=== PATIENT | male | born 1970 | race Hispanic/Latino ===

== ENCOUNTER 2021-12-22 08:52 | Emergency (ER) | payer OTHER, SELFPAY ==
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
[2021-12-22 09:15] VITALS: BP 208/90; PULSE 80; RESP 16; TEMP 36.7; O2SAT 100
[2021-12-22] MEDS: SILVER SULFADIAZINE 1% CR 50 GM JAR (*BKC) 1 APPLIC TOPICAL (09:34)
[2021-12-22 09:42] VITALS: BP 203/96
== END 2021-12-22 09:42 | disposition home or self-care (01) ==
PROVIDERS: Emergency Provider Nurse Practitioner
DX: T22.211A Burn of second degree of right forearm, initial encounter (principal); X00.0XXA Exposure to flames in uncontrolled fire in building or structure, initial encounter; Z48.00 Encounter for change or removal of nonsurgical wound dressing; I10 Essential (primary) hypertension
CPT/HCPCS: 99203; A9270; G0463

== ENCOUNTER 2022-05-14 08:57 | Emergency (ER) | payer SELFPAY ==
[2022-05-14 09:12] VITALS: BP 182/97; PULSE 92; RESP 16; TEMP 37; O2SAT 99
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
== END 2022-05-14 10:22 | disposition home or self-care (01) ==
PROVIDERS: Emergency Provider Registered Nurse
DX: M10.9 Gout, unspecified (principal); E11.9 Type 2 diabetes mellitus without complications; I10 Essential (primary) hypertension
CPT/HCPCS: 99213; G0463

== ENCOUNTER 2023-06-08 09:09 | Emergency (ER) | payer SELFPAY ==
[2023-06-08 09:40] VITALS: BP 213/109; PULSE 88; RESP 16; TEMP 37.1; O2SAT 100
--- NOTE | 2023-06-08 09:46 | ED.GENADULT ---
HPI - General Adult General Chief complaint: Extremity Problem,Nontraumatic Stated complaint: left knee swollen Source: patient, RN notes reviewed and old records reviewed Mode of arrival: ambulatory Limitations: no limitations History of Present Illness HPI narrative: 53-year-old male patient presents to [facility] with complaint of left knee pain for 2 days. Patient denies injury. Patient states has had before and states it is inflammation in the joint. Patient taking ibuprofen with some relief. 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 Related Data Allergies Allergy/AdvReac Type Severity Reaction Status Date / Time No Known Allergies Allergy Verified 06/08/23 09:45 Review of Systems Constitutional: Constitutional: Reports no additional constitutional complaints, Denies body ache(s), Denies chills, Denies fatigue, Denies fever(s) and Denies headache(s) Eyes: Eyes: Reports no additional eye complaints and Denies blurry vision ENT: Reports system reviewed and no additional complaints, except as documented, Denies vertigo, Denies dizziness, Denies ear discharge, Denies otalgia, Denies facial pain, Denies headache(s), Denies nasal congestion, Denies nasal discharge, Denies sinus pain, Denies sinus pressure and Denies sore throat Cardiovascular: Cardiovascular: Reports no additional cardiovascular complaints, Denies chest pain, Denies chest pain at rest, Denies rapid heart rate and Denies dyspnea Respiratory: Respiratory: Reports no additional respiratory complaints, Denies chest congestion, Denies cough, Denies pain on inspiration, Denies pain with cough and Denies dyspnea Gastrointestinal: Gastrointestinal: Denies abdominal pain, Denies diarrhea, Denies nausea and Denies vomiting Musculoskeletal: Musculoskeletal: Reports arthralgias and Reports joint swelling Comments: left knee pain and swelling for 2 days Integumentary/Breasts: Skin/Breast: Denies rash Neurologic: Reports system reviewed and no additional complaints, except as documented, Denies vertigo, Denies dizziness and Denies headache(s) Endocrine: Endocrine: Denies fatigue PMFSH Past Medical History Medical History Diabetes Hypertension Surgical History Surgical History No history of previous surgery Social History Social History (Reviewed 06/08/23 @ 10:06 by PAVAN Mayorga Smoking status: Never smoker Alcohol intake: current Gender identity (if verbalized by the patient): Male Comments At the time of my signature, I reviewed and agree with the nursing past medical, surgical, social, and family history. There is no relevant family history pertinent to the patient complaint. Exam Const: General: cooperative, healthy appearing, no acute distress and well nourished Nutritional Appearance: well nourished Orientation/consciousness: patient oriented x3 Limitations: no limitations HENMT: Head: normal to inspection and normocephalic Ears: external ears normal, TM's normal bilaterally, mastoids normal and Abnormal EAC present Face/Nose/Sinus: normal facial exam Face and sinus: normal facial exam Mouth: Yes Normal oral and palatal mucosa present, Yes oropharynx normal and Yes moist mucous membranes Throat: tonsils normal, uvula midline and no uvular edema Eyes: General: appearance normal, both eyes and all related structures Sclera: sclerae normal Pupils: Equal, round and reactive pupils present Resp: Effort & Inspection: normal respiratory effort, able to speak in complete sentences, no audible wheezes, no cough, no respiratory distress and no retractions Skin: General skin exam: normal color and no rashes or lesions noted Neuro: General: patient oriented x3 Cranial nerves: Yes Equal, round and reactive pupils present Extrem: Left lower extremity: normal capillary refill and knee Details: tendern
[2023-06-08 10:18] VITALS: BP 184/100
== END 2023-06-08 10:18 | disposition home or self-care (01) ==
PROVIDERS: Emergency Provider Registered Nurse
DX: M10.9 Gout, unspecified (principal); E11.9 Type 2 diabetes mellitus without complications; I10 Essential (primary) hypertension
CPT/HCPCS: 99213; G0463

== ENCOUNTER 2023-07-28 11:02 | Emergency (ER) | payer SELFPAY ==
--- NOTE | 2023-07-28 11:06 | ED.LOWEXIN ---
HPI - Extremity Injury (Lower) General Chief Complaint: Extremity Injury, Lower Stated Complaint: Left Knee Pain Time Seen by Provider: 07/28/23 11:06 Source: patient Mode of arrival: ambulatory Limitations: no limitations History of Present Illness HPI Narrative: Patient is a 53-year-old male who presents with left knee pain and left ankle pain for 2 days. Patient reports drinking significant amount of alcohol over the weekend. Patient has history of gout but has not been seen by PCP for gout issues. Patient reports establishing care with new PCP soon. Reports he is still able to ambulate normally but the knee and ankle are tender to touch. Reports swelling and mild redness. Related Data Home Medications Medication Instructions Recorded Confirmed aspirin 81 mg tablet,delayed 81 mg PO DAILY 07/28/23 07/28/23 release atorvastatin 40 mg tablet 40 mg PO HS 07/28/23 07/28/23 carvedilol 12.5 mg tablet 12.5 mg PO DAILY 07/28/23 07/28/23 carvedilol 6.25 mg tablet 6.25 mg PO DAILY 07/28/23 07/28/23 empagliflozin 25 mg tablet 25 mg PO DAILY 07/28/23 07/28/23 (Jardiance) naproxen 500 mg tablet 500 mg PO DAILY 07/28/23 07/28/23 nifedipine 30 mg tablet,extended 30 mg PO DAILY 07/28/23 07/28/23 release 24 hr Allergies Allergy/AdvReac Type Severity Reaction Status Date / Time No Known Allergies Allergy Verified 07/28/23 11:05 Review of Systems Review of Systems: All systems reviewed & are unremarkable except as noted in HPI and below Constitutional: Constitutional: Denies body ache(s), Denies chills, Denies fatigue, Denies fever(s), Denies headache(s), Denies malaise and Denies weakness Eyes: Eyes: Denies blurry vision, Denies irritation and Denies loss of vision ENT: Denies otalgia, Denies headache(s), Denies nasal discharge, Denies sinus pain and Denies sore throat Cardiovascular: Cardiovascular: Denies chest pain, Denies irregular heart rhythm and Denies dyspnea Respiratory: Respiratory: Denies dyspnea Gastrointestinal: Gastrointestinal: Denies abdominal pain, Denies melena, Denies hematochezia, Denies diarrhea, Denies nausea and Denies vomiting Musculoskeletal: Musculoskeletal: Denies back pain, Denies myalgias and Reports arthralgias Integumentary/Breasts: Skin/Breast: Denies pruritus and Denies rash Neurologic: Denies headache(s), Denies loss of vision and Denies weakness Psychiatric: Psychiatric: Reports no additional psychiatric complaints Endocrine: Endocrine: Denies fatigue PMFSH Past Medical History Medical History Diabetes Hypertension Surgical History Surgical History No history of previous surgery Social History Social History Smoking status: Never smoker Alcohol intake: current Gender identity (if verbalized by the patient): Male Comments At time of signature, agree with nursing past medical, surgical, social and family history. There is no relevant family history pertinent to the presenting complaint. Exam Const: General: cooperative, healthy appearing, comfortable, no acute distress and well nourished Nutritional Appearance: well nourished Orientation/consciousness: patient oriented x3 Limitations: no limitations HENMT: Head: normal to inspection, normocephalic and atraumatic Ears: hearing grossly normal bilaterally and external ears normal Face/Nose/Sinus: Normal external nose present, normal facial exam and face symmetric Face and sinus: normal facial exam and face symmetric Mouth: Yes lip normal Eyes: General: appearance normal, both eyes and all related structures Alignment and Position: alignment normal and position normal Periorbital: periorbital findings normal Eyelids: eyelids normal Pupils: Equal, round and reactive pupils present EOM: EOMs intact bilaterally Neck: Neck: normal visual inspec
[2023-07-28 11:20] VITALS: BP 186/94; PULSE 91; RESP 18; TEMP 36.4; O2SAT 100
[2023-07-28 11:58] VITALS: BP 150/90
== END 2023-07-28 11:58 | disposition home or self-care (01) ==
PROVIDERS: Emergency Provider Nurse Practitioner Family
DX: M10.9 Gout, unspecified (principal); E11.9 Type 2 diabetes mellitus without complications; I10 Essential (primary) hypertension; Z79.82 Long term (current) use of aspirin
CPT/HCPCS: 99213; G0463